=== PATIENT | female | born 1995 | race Caucasian/White ===

== ENCOUNTER 2019-08-04 15:33 | Emergency (ER) | payer OTHER ==
[~2019-08-04] VITALS: Ht 167.6 cm; Wt 84.8 kg
[2019-08-04] MEDS ORDERED: FOLIC ACID1 MG (16:01)
== END 2019-08-04 23:54 | disposition home or self-care (01) ==
LOC: ER 15:33
DX: O21.8 Other vomiting complicating pregnancy (principal); Z34.01 Encounter for supervision of normal first pregnancy, first trimester

== ENCOUNTER 2024-11-28 12:11 | Emergency (ER) | payer OTHER ==
[~2024-11-28] VITALS: Ht 167.6 cm; Wt 81.6 kg
[~2024-11-28 12:11] MED LIST: FOLIC ACID1 MG
[2024-11-28] MEDS ORDERED: TRAZODONE HCL50 MG PO (13:45)
[2024-11-28] MEDS ORDERED: LAMICTAL100 MG PO (13:46)
[2024-11-28] MEDS ORDERED: ARIPIPRAZOLE5 MG PO (13:46)
[2024-11-28] MEDS ORDERED: VENLAFAXINE HC150 MG PO (13:46)
[2024-11-28] MEDS ORDERED: BUSPIRONE HCL10 MG PO (13:46)
[2024-11-28] MEDS ORDERED: MONTELUKAST SODIUM 10 MG TABLET PO ONE (14:00)
[2024-11-28] MEDS ORDERED: ACETAMINOPHEN 325 MG TABLET PO ONE (14:00)
[2024-11-28] MEDS ORDERED: CEFTRIAXONE SODIUM 1,000 MG VIAL IM ONE (14:00)
[2024-11-28] MEDS ORDERED: ACETAMINOPHEN 500 MG GEL..CAP PO ONE (14:23)
[2024-11-28] MEDS ORDERED: CEFTRIAXONE SODIUM 1,000 MG VIAL ONE (14:24)
[2024-11-28 14:56] LABS: HEMATOCRIT 41.4 % (36.0-45.00); MEAN CELL VOLUME 89.6 fL (80.00-100.00); MEAN CORPUSCULAR HEMOGLOBIN 30.4 pg (27.00-32.0); MEAN CORPUSCULAR HGB CONC 33.9 g/dl (32.0-36.0); PLATELET COUNT 245 K/uL (150-450); RED BLOOD COUNT 4.62 M/uL (4.00-6.00); RED CELL DISTRIBUTION WIDTH 13.4 % (11.5-14.5)
[2024-11-28] MEDS ORDERED: PEPCID AC20 MG PO (15:16)
[2024-11-28] MEDS ORDERED: OSEL75CA PO (15:16)
== END 2024-11-28 15:37 | disposition home or self-care (01) ==
LOC: ER 12:13
PROVIDERS: General Practice
DX: J10.1 Influenza due to other identified influenza virus with other respiratory manifestations (principal); Z20.822 Contact with and (suspected) exposure to COVID-19; Z85.89 Personal history of malignant neoplasm of other organs and systems